=== PATIENT | female | born 1955 | race Caucasian/White ===

== ENCOUNTER → 2017-06-26 | Day surgery (SDC) | payer OTHER ==
[~2017-06-26] MED LIST: ACETAMINOPHEN 1000 MG/100 ML 100 ML IV ONE; BACITRACIN IM FOR SOLN 50,000 UNIT VIAL ONE; BUPIVACAINE/EPINEPHRINE 0.25% 50 ML VIAL ONE; GENTAMICIN SULFATE 80 MG/2 ML VIAL ONE; KETOROLAC TROMETHAMINE 30 MG/ML (IVP) VIAL IV PUSH ONE; LACTATED RINGER'S 1000 ML INJ 1,000 ML ONE; MIDAZOLAM HCL 2 MG/2 ML VIAL ONE; ONDANSETRON HCL 4 MG/2 ML VIAL IV PUSH ONE; PROPOFOL 200 MG/20 ML AMP IV ONE; SODIUM CHLORIDE 0.9% 20 ML VIAL ONE; ceFAZolin INJ 1,000 MG VIAL ONE
--- NOTE | 2017-06-26 11:05 | TN ---
cc: TIM JAIN M.D. DATE OF SURGERY 06/26/2017 PREOPERATIVE DIAGNOSIS Wishes of breast enhancement. POSTOPERATIVE DIAGNOSIS Wishes of breast enhancement. PROCEDURE Augmentation mammoplasty. SURGEON Tim Jain MD/JAMES ANESTHESIA LMA general ESTIMATED BLOOD LOSS Minimal COMPLICATIONS None PLACEMENT AND TECHNIQUE Inframammary retroperitoneal cohesive gel Kvnge Charlieira SRN volume 375, serial number of the right breast implant device [id number] and the left breast implant device serial number is [id number], both of them again 375 cc PROCEDURE She was properly consented, marked and anesthetized. The skin was sterilized with Betadine solution and sterile draping applied. Local anesthetic was injected, a total of 60 cc, 30 cc of 1% lidocaine with epinephrine mixed with 0.25% Marcaine per breast. Through a 3-1/2 to 4 cm inframammary incision, the retroperitoneal plane was encountered. The inferomedial fibers were properly divided and after isolating the skin and certainly the NAC from the beginning of the case, the implant was introduced without any difficulties. The contralateral side was approached in exactly the same manner as previously described. The patient was sat up, blunt touch ups were done to achieve best symmetry possible and assuring that, the wound was closed in multiple layers of 2-0 Monocryl suture in Jannet's fascia, dermis and subcu. Mastisol and Steri-Strips were applied, as well as absorbent dressing followed by a snug brassiere. Overall, the patient tolerated the procedure well. She was awakened and extubated in the operating room, transferred back to the postanesthesia care unit in stable condition. There were no complications appreciated. The patient tolerated the procedure fairly well. MD FERNANDO Morse/IBAN /10:47 AM /10:54 AM
== END | disposition home or self-care (01) ==
LOC: ESDC 08:20
PROVIDERS: ATTEND Plastic Surgery
DX: Z41.1 Encounter for cosmetic surgery (principal)
CPT/HCPCS: 00402; 19325; C1789; J0131; J0690; J1580; J1885; J2250; J2405; J3010; J7120